=== PATIENT | female | born 1970 | race Caucasian/White ===

== ENCOUNTER → 2018-05-30 | Outpatient (CLI) | payer BC ==
[2014-11-30 23:05] VITALS: BP 111/79
--- NOTE | 2018-05-30 09:10 | RAD ---
US PELVIS W/TV Clinical Indication: Ovarian mass seen on CT done at [facility]. Comparison: None. TECHNIQUE: Real-time ultrasound imaging of the pelvis using transabdominal and transvaginal window is performed. Findings: Urinary bladder is not well distended. The right ovary measures 2.4 x 2.3 x 1.8 cm. Small follicles are seen. There is normal blood flow. The left ovary measures 3.8 x 2.4 x 2.7 cm. There is normal blood flow in the left ovary. There is a left adnexal cyst measuring 5.9 x 6 x 4.4 cm. Color Doppler interrogation is negative. There are internal hyperechogenicities with a dot dash pattern. The cyst is immediately adjacent to the left ovary. A definite claw sign is not appreciated. There is a isoechoic lesion in the left ovary with a hyperechoic rim measuring 1.4 x 1.3 x 1.3 cm. Color Doppler interrogation is negative. Finding may be a small hemorrhagic cyst. No cul-de-sac free fluid. IMPRESSION: 1. Left adnexal cyst measuring up to 6 cm. Considerations include paraovarian cyst, ovarian inclusion cyst, cystic teratoma, or peritoneal inclusion cyst. Comparison to CT would be useful. 2. Normal blood flow in the ovaries. Electronically signed by: Srini Kaplan MD (05/30/2018 9:07 AM) [id number]
== END | disposition home or self-care (01) ==
LOC: US 07:42
PROVIDERS: ATTEND Physician Assistant
DX: N83.8 Other noninflammatory disorders of ovary, fallopian tube and broad ligament (principal); N83.291 Other ovarian cyst, right side; Q50.5 Embryonic cyst of broad ligament
CPT/HCPCS: 76830; 76856